=== PATIENT | male | born 1955 | race Caucasian/White ===

== ENCOUNTER 2016-11-09 11:44 | Day surgery (SDC) | payer MEDICARE ==
[~2016-11-09] VITALS: Ht 170.2 cm; Wt 122.3 kg
[~2016-11-09 11:44] MED LIST: CELEXA20 MG PO; COUMADIN5 MG PO; FOLIC ACID1 MG PO; METHOTREXATE2.5 MG PO; NEURONTIN 300300 MG PO; PRINIVIL20 MG PO; ZANTAC300 MG PO
[2016-11-09 16:20] VITALS: BP 136/68; Ht 170.2 cm; Wt 122.3 kg
[2016-11-09 16:33] LABS: BASOPHILS 0.1 % (0.0-2.0); EOSINOPHILS 2.6 % (0-7); HEMATOCRIT 41.3 % (42.0-54.0); HEMOGLOBIN 13.4 g/dL (13.5-17.5); IMMATURE GRANULOCYTES 0.5 % (0-5); LYMPHOCYTES 25.5 % (15-50); MCH 30.1 pg (26.0-34.0); MCHC 32.4 g/dL (31.0-37.0); MCV 92.8 fL (80.0-100.0); MEAN PLATELET VOLUME 9.3 fL (7.4-10.4); MONOCYTES 7.7 % (2-11); NEUTROPHILS 63.6 % (40-80); PLATELET COUNT 180 10x3/uL (130-400); RBC 4.45 10x6/uL (4.20-6.10); RDW 14.8 % (11.5-14.5); WBC 7.8 10x3/uL (4.8-10.8)
[2016-11-09 16:43] LABS: INR 1.59 (0.85-1.17); PROTIME 18.9 SECONDS (11.6-15.0)
--- NOTE | 2016-11-09 17:53 | NUR ---
1750 BACK FROM COLONOSCOPY AWAKE AND TALKING PASSED AIR. DR. CASSIDY TALKED TO PATIENT AND ALEC.
--- NOTE | 2016-11-09 18:25 | NUR ---
1820 TOLERATING FULLLIQUIDS NO COS OF PAIN.
--- NOTE | 2016-11-09 19:09 | NUR ---
1850 IV DCD CATHETER INTACT UP AND VOIDED. WENT OVER DISCHARGE INSTRUCTIONS AND VERBALLY UNDERSTANDS.
--- NOTE | 2016-11-09 19:10 | NUR ---
1899 ASSISTED TO CAR VIA W/C.1904 PATIENT TO CAR VIA W/C WIF E DRIVING,
--- NOTE | 2016-11-14 10:50 | OP ---
PATIENT NAME: STEFANY CHAMBERLAIN MEDICAL RECORD: [id number] :51 LOCATION:D.OPS ADMISSION DATE: SURGEON: KELSIE CASSIDY DO DATE OF OPERATION: 11/09/2016 PROCEDURE: Colonoscopy. SCOPE: Olympus video pediatric colonoscope. MEDICATIONS: Propofol 250 mg IV per anesthesia. INDICATIONS FOR PROCEDURE: Positive stool guaiac. FINDINGS: Informed consent was given. The patient was made comfortable with the above medications. After reaching an adequate level of sedation by slow IV push, the patient was placed on his left side. A digital rectal examination was performed, it was normal. The Olympus video pediatric colonoscope was then inserted under direct visualization through the rectum to the cecum, evidenced by the appendiceal orifice and ileocecal valve. The scope was then slowly withdrawn while the mucosa was carefully examined. There were no abnormalities throughout the entire colon until retroflexion was performed in the rectum. There were small internal hemorrhoids without bleeding stigmata present. Scope was then withdrawn from the patient. The patient tolerated the procedure well and there were no complications. ESTIMATED BLOOD LOSS: Zero. WITHDRAWAL TIME: 8 minutes. IMPRESSION: 1. Internal hemorrhoids, which were small without bleeding stigmata. 2. Otherwise, normal colonoscopy. PLAN AND RECOMMENDATIONS: 1. Discharge home when recovery parameters are met. 2. Continue current diet. 3. Continue current medications. 4. Recommend adding Konsyl fiber supplement to the diet consisting of 2 tablespoons daily to bulk the stool. 5. Recall colonoscopy in 7 years. TRANSINT:[id number] Voice Confirmation ID: [id number] DOCUMENT ID: [id number] KELSIE CASSIDY DO at 1050 CC: [id number] DICTATION DATE: 11/09/16 174 STENCIL TYPIST: 11/09/16 1833 [facility] 11/09/[address] [facility] [address] [place] [id number]
== END 2016-11-09 19:05 | disposition home or self-care (01) ==
LOC: D.OPS 11:44
PROVIDERS: Anesthesiology
DX: R19.5 Other fecal abnormalities (principal); K64.8 Other hemorrhoids; I25.10 Atherosclerotic heart disease of native coronary artery without angina pectoris; K21.9 Gastro-esophageal reflux disease without esophagitis; Z95.5 Presence of coronary angioplasty implant and graft; G47.30 Sleep apnea, unspecified; E66.01 Morbid (severe) obesity due to excess calories; Z68.41 Body mass index [BMI] 40.0-44.9, adult

== ENCOUNTER 2017-11-05 09:55 | Outpatient (CLI) | payer MEDICARE ==
[~2017-11-05] VITALS: Ht 170.2 cm; Wt 129.1 kg
--- NOTE | ~2017-11-05 | HEMODYNAMI ---
PATIENT:STEFANY CHAMBERLAIN MEDICAL RECORD: [id number] : 51 LOCATION:D.CAT ADMISSION DATE: 11/05/17 Generatedon:11/05/201713:04 Patient name: STEFANY CHAMBERLAIN Patient #: [id number] SSN: D OB: 1955 Date of study: 11/05/2017 Page: Of Hemodynamic Procedure Report Patient Data Patient Demographics Procedure consent was obtained First Name: STEFANY Gender: Male Last Name: BULMARO : 1955 [facility] Initial: L Age: 62 year(s) Patient #: [id number] Race: Unknown Additional ID: [id number] Contact details Address: [address] [place] [address] State: [place] City: [place] Zip code: [address] Past Medical History Allergies Allergen Reaction Date Comments Reported Other allergy 11/05/2017 CODEINE, MORPHINE, SULFA Admission Admission Data Admission Date: 11/05/2017 Admission Time: 9:55 Lab Results Lab Result Date: 11/05/2017 Lab Result Time: 0:00 Biochemistry Name Units Result Min Max BUN mg/dl 17 --(---*)-- 7 18 Creatinine mg/dl 1.3 --(---*)-- 0.6 1.3 CBC Name Units Result Min Max Hemoglobin g/dl 14.3 --(*---)-- 13.5 17.5 Procedure Procedure Types Cath Procedure Diagnostic Procedure [facility] w/Coronaries Sedation Charges Moderate Sedation up to 15 minutes Procedure Description Procedure Date Procedure Date: 11/05/2017 Procedure Start Time: 12:50 Procedure End Time: 13:03 Procedure Staff Name Function Papa Osborne MD Performing Physician Moon Glover RT Monitor Vicki Lacey RT Scrub Leo Frazier RN Nurse Procedure Data Cath Procedure Fluoroscopy Diagnostic fluoroscopy Total fluoroscopy Time: time: 2.83 min 2.83 min Diagnostic fluoroscopy Total fluoroscopy dose: 973 dose: 973 mGy mGy Contrast Material Contrast Material Type Amount (ml) Isovue 300 52 Entry Location Entry Primary Successful Side Size Upsize Upsize Entry Closure Cannon ccessful Closure Location (Fr) 1 (Fr) 2 (Fr) Remarks Device Remarks Radial Right 6 Fr Mechanical artery Short Compression Estimated blood loss: 10 ml Diagnostic catheters Device Type Used For End Catheter Placement DIAGNOSTIC Jagdish 110cm Procedure 5Fr catheter ([id number]) Procedure Complications No complications Procedure Medications Medication Administration Route Dosage Oxygen NC 2 l/min Heparin Flush Bag added to field 2 bags (1000units/500ml NS) 0.9% NaCl I.V. 100 ml/hr Radial Cocktail added to field 1 syringe (Verapomil 2mg/Nitro 400mcg/Heparin 1500units) Fentanyl I.V. 50 mcg Versed I.V. 1 mg Fentanyl I.V. 50 mcg Versed I.V. 1 mg Radial Cocktail I.A. 1 syringe (Verapomil 2mg/Nitro 400mcg/Heparin 1500units) Hemodynamics Rest HGB: 14.3 (g/dl) Heart Rate: 67 (bpm) Pressure Samples Time Site Value (mmHg) Purpose Heart Use Rate(bpm) 12:53 LV 112/-1,10 Snapshot 72 Gradients Valve Time Site Site Mean SEP/DFP Peak To Heart Use 1 2 (mmHg) (sec/min) Peak Rate (mmHg) (bpm) Aortic 12:53 LV AO 65 Snapshots Pre Cath Intra NCS Post Cath Vital Signs Time Heart Resp SPO2 NIBP (mmHg) Rhythm Pain Sedation Rate (ipm) (%) Status Level (bpm) 12:34:21 48 18 95 123/72(98) NSR 0 (11) 10(A) , No pain 12:38:37 63 15 95 115/70(104) NSR 0 (11) 10(A) , No pain 12:42:53 61 17 98 117/71(90) NSR 0 (11) 10(A) , No pain 12:47:07 59 16 97 101/62(82) NSR 0 (11) 10(A) , No pain 12:51:21 61 16 96 110/61(84) NSR 0 (11) 9(A) , No pain 12:55:37 60 16 95 110/63(77) NSR 0 (11) 9(A) , No pain 12:59:51 69 16 96 115/65(101) NSR 0 (11) 9(A) , No pain 13:02:51 69 16 96 117/68(90) NSR 0 (11) 9(A) , No pain Medications Time Medication Route Dose Verified Delivered Reason Notes Effectiveness by by 12:42:58 Oxygen NC 2 l/min Papa Leo Per Dylon Frazier RN physician 12:43:07 Heparin Flush added 2 bags Papa Leo used for Bag to Dylon Frazier RN procedure (1000units/500ml field NS) 12:43:17 0.9% NaCl I.V. 100 Papa Leo Per ml/hr Dylon Frazier RN physician 12:43:28 Radial Cocktail added 1 Papa Leo used for (Verapomil to syringe Dylon Frazier RN procedure 2mg/Nitro field 400mcg/Heparin 1500units) 12:46:54 Fentanyl I.V. 50 mcg Papa Leo for sedation Dylon Frazier RN 12:47:00 Versed I.V. 1 mg Papa Leo for sedation Dylon Frazier RN 12:50:52 Fentanyl I.V. 50 mcg Papa Leo for sedation Dylon Frazier RN 12:50:55 Versed I.V. 1 mg Papa Leo for sedation Dylon Frazier RN 12:53:30 Radial Cocktail I.A. 1 Papa Papa for (Verapomil syringe Dylon Osborne MD vasodilation 2mg/Nitro 400mcg/Heparin 1500units) Procedure Log Time Note 11:58:35 Time tracking: Regular hours 11:58:39 Plan of Care:Hemodynamics will remain stable., Cardiac rhythm will remain stable., Comfort level will be maintained., Respiratory function will remain adequate., Patient/ family verbilizes understanding of procedure., Procedure tolerated without complication., Recovers from procedure without complications.. 11:58:42 Signed procedure consent form obtained from patient. 12:00:57 Patient allergic to Other allergyCODEINE, MORPHINE, SULFA 12:04:22 Lab Result : BUN 17 mg/dl 12:04:22 Lab Result : Creatinine 1.3 mg/dl 12:04:22 Lab Result : Hemoglobin 14.3 g/dl 12:06:58 Vicki RG(R) sent for patient. Start room use. 12:24:15 Patient received from Pre/Post Procedure Room to CCL 2 Alert and oriented. Tansferred to table in Supine position. 12:24:16 Warm blankets applied, and phillip hugger turned on for patient comfort. 12:24:17 Correct patient and procedure confirmed by team. 12:24:18 ECG and BP/O2 sat monitors applied to patient. 12:24:35 H&P Date Dictated: 10/23/2017 Within 30 days and on chart., H&P Addendum completed by physician on day of procedure. (MUST COMPLETE FOR ALL OUTPATIENTS). 12:33:09 Vital chart was started 12:42:58 Oxygen 2 l/min NC was administered by Leo Frazier RN; Per physician; 12:43:07 Heparin Flush Bag (1000units/500ml NS) 2 bags added to field was administered by Leo Frazier RN; used for procedure; 12:43:17 0.9% NaCl 100 ml/hr I.V. was administered by Leo Frazier RN; Per physician; 12:43:28 Radial Cocktail (Verapomil 2mg/Nitro 400mcg/Heparin 1500units) 1 syringe added to field was administered by Leo Frazier RN; used for procedure; 12:44:19 Baseline sample Acquired. 12:44:28 Rhythm: sinus rhythm 12:44:36 Full Disclosure recording started 12:44:39 Pre-procedure instructions explained to patient. 12:44:42 Family in waiting room. 12:44:44 Patient NPO since Midnight. 12:44:47 Is the patient allergic to Iodine/contrast media? No. 12:44:50 Is patient on blood thinner?Yes 12:44:55 Patient diabetic? No. 12:45:03 Snore? Yes 12:45:07 Sleep apnea? Yes 12:45:12 Airway obstruction? Yes COPD 12:46:05 Patient pain scale 5/10 ?. 12:46:11 IV patent on arrival in left antecubital with 0.9% NaCl at O. 12:46:20 Lab results completed and on chart. 12:46:24 Right Radial & Right Groin area was prepped with chlora-prep and draped in sterile fashion 12:46:26 Alarms reviewed by R. N. 12:46:27 Sharps counted by scrub and verified by R.N. 12:46:27 Physician paged 12:46:28 Physician arrived 12:46:29 --------ALL STOP TIME OUT------ 12:46:29 Final Timeout: patient, procedure, and site verified with staff and physician. All members of the team are in agreement. 12:46:31 Right Radial & Right Groin site verified by team. 12:46:35 Physical assessment completed. ASA score P 2 - A patient with mild systemic disease as per Papa Osborne MD. 12:46:38 Sedation plan: IV Moderate Sedation Medication:Versed, Fentanyl 12:46:54 Fentanyl 50 mcg I.V. was administered by Leo Frazier RN; for sedation; 12:47:00 Versed 1 mg I.V. was administered by Leo Frazier RN; for sedation; 12:49:30 Use device set Femoral Dx 12:49:31 ACIST Syringe (91837) opened to sterile field. 12:49:32 Bag Decanter (2002S) opened to sterile field. 12:49:33 Medline Cath Pack ([id number]) opened to sterile field. 12:49:35 DIAGNOSTIC WIRE .035 260cm J wire (762717) opened to sterile field. 12:49:36 ACIST Hand Control (28896) opened to sterile field. 12:49:37 ACIST Manifold (68365) opened to sterile field. 12:49:40 Tegaderm 4 x 4 (1626W) opened to sterile field. 12:49:42 PERCUTANEOUS ENTRY 19GA needle opened to sterile field. 12:49:55 SHEATH 6Fr Prelude Radial ([id number]) opened to sterile field. 12:50:00 Procedure started. 12:50:03 Zero performed for pressure channel P1 12:50:40 Local anesthetic to right radial artery with Lidocaine 2% by Papa Osborne MD.INITIAL ACCESS ONLY 12:50:52 Fentanyl 50 mcg I.V. was administered by Leo Frazier RN; for sedation; 12:50:55 Versed 1 mg I.V. was administered by Leo Frazier RN; for sedation; 12:51:34 A 6 Fr Short sheath was inserted into the Right Radial artery 12:51:55 A DIAGNOSTIC Jagdish 110cm 5Fr catheter (077572) was advanced over the wire and used for Procedure. 12:52:44 LV angiography performed. 12:53:30 Radial Cocktail (Verapomil 2mg/Nitro 400mcg/Heparin 1500units) 1 syringe I.A. was administered by Papa Osborne MD; for vasodilation; 12:53:33 EF : 55 % 12:53:58 LCA angiography performed. 13:00:22 RCA angiography performed. 13:00:56 TR BAND Large ([id number]) opened to sterile field. 13:01:01 Catheter removed. 13:01:11 Sheath removed intact; hemostasis achieved with Mechanical Compression to the Right Radial artery. 13:01:13 Procedure ended.(Physican Out) 13:01:25 Fluoroscopy time 02.83 minutes. 13::31 Fluoroscopy dose: 973 mGy 13::31 Flurop Dose total: 973 13:01:38 Contrast amount:Isovue 300 52ml. 13:01:40 Sharps counted by scrub and verified by R.N. 13:01:43 TR band inflated with 10cc of air. 13:01:55 Insertion/operative site no bleeding no hematoma. 13:01:57 Post Procedure Pulses reassessed and unchanged 13:02:02 Post-procedure physical assessment completed. ASA score P 2 - A patient with mild systemic disease as per Papa Osborne MD. 13:02:05 Post procedure rhythm: unchanged. 13:02:08 Estimated blood loss: 10 ml 13:02:09 Post procedure instruction explained to patient.Patient verbalizes understanding. 13:02:35 Procedure type changed to Cath procedure, Diagnostic procedure, LHC, LHC w/Coronaries, Sedation Charges, Moderate Sedation up to 15 minutes 13:02:37 Procedure and supply charges have been captured, reviewed, submitted and are correct. 13:03:01 Procedure Complication : No complications 13:03:04 Vital chart was stopped 13:03:05 See physician's report for complete and final results. 13:03:08 Report given to Pre/Post Procedure Room. 13:03:11 Patient transfered to Pre/Post Procedure Room with Stretcher. 13:03:34 Procedure ended. 13:03:34 Full Disclosure recording stopped 13:03:38 End room use (Document Last) Device Usage Item Name Manufacture Quantity Catalog Number Hospital Part Current M inimal Lot# / Charge Number Stock Stock Serial# Code ACIST Syringe Acist 1 77151 [id number] 498396 922059 2 0 (84574) [employer] Bag Decanter Microtek 1 2001S 402683 91834 255250 5 (2001S) [employer] Medline Cath Cardinal 1 [id number] 310831 27411 481567 5 [facility] ([id number]) DIAGNOSTIC WIRE [facility] [place] 1 174079 610291 693445 582836 3 0 .035 260cm J wire (322637) ACIST Hand Acist 1 41617 348328 304464 321926 5 Control (56689) [employer] ACIST Manifold Acist 1 64206 133643 783307 225595 5 (04913) [employer] Tegaderm 4 x 4 3M 1 1626W 319543 130090 438951 5 (1626W) PERCUTANEOUS Cook Medical 1 [id number] 025067 926448 5 ENTRY 19GA needle SHEATH 6Fr Merit 1 [id number] 594415 454808 322492 5 Prelude Radial Medical ([id number]) DIAGNOSTIC Terumo 1 40-3729 804719 938394 174352 5 Jagdish 110cm 5Fr catheter (031903) TR BAND Large Terumo 1 [id number] 684916 222935 015284 4 0 ([id number]) Signature [employer]it [place] Stage Time Signature Unsigned Intra-Procedure 11/05/2017 Moon Glover 1:04:02 PM RT(R) Signatures Monitor : Moon Glover Signature : RT Date : Time : [facility] [address] [place] [address]
[2017-11-05] MEDS ORDERED: ATORVASTATIN TAB 40M PO (10:57)
[2017-11-05 11:10] VITALS: BP 145/79; Ht 170.2 cm; Wt 129.1 kg
[2017-11-05 11:25] LABS: INR 1.16 (0.85-1.17); PROTIME 14.4 SECONDS (11.6-15.0)
[2017-11-05 11:32] LABS: ANION GAP 9.5 mmol/L (8-16); CALCIUM 8.8 mg/dL (8.5-10.1); CARBON DIOXIDE 28.5 mmol/L (21.0-32.0); CREATININE - SERUM 1.3 mg/dL (0.6-1.3)
[2017-11-05 11:34] LABS: HEMATOCRIT 42.7 % (42.0-54.0); HEMOGLOBIN 14.3 g/dL (13.5-17.5); LYMPHOCYTES 28.5 % (15-50); MCHC 33.5 g/dL (31.0-37.0); MCV 89.5 fL (80.0-100.0); MEAN PLATELET VOLUME 9.3 fL (7.4-10.4); NEUTROPHILS 65.9 % (40-80); PLATELET COUNT 169 10x3/uL (130-400); RBC 4.77 10x6/uL (4.20-6.10); RDW 14.2 % (11.5-14.5); WBC 7.1 10x3/uL (4.8-10.8)
== END 2017-11-05 15:30 | disposition home or self-care (01) ==
LOC: D.CATH 09:55
PROVIDERS: Internal Medicine Cardiovascular Disease; Internal Medicine Interventional Cardiology
DX: I25.110 Atherosclerotic heart disease of native coronary artery with unstable angina pectoris (principal); I10 Essential (primary) hypertension; Z01.812 Encounter for preprocedural laboratory examination; Z87.891 Personal history of nicotine dependence